=== PATIENT | female | born 2000 | race Caucasian/White ===

== ENCOUNTER 2020-10-09 03:11 | Emergency (ER) | payer BC ==
[2020-10-09] MEDS ORDERED: Sodium Chloride 0.9% 1,000 ML IV ONE (03:30)
[2020-10-09] MEDS ORDERED: Ondansetron 4 MG/2 ML SDV IVPUSH ONE (03:30)
[2020-10-09] MEDS ORDERED: Sodium Chloride 0.9% 10 ML Syringe FLUSH PRN (03:30)
[2020-10-09] MEDS ORDERED: LORazepam 2 MG/ML SDV IVPUSH ONE ×2 (03:33→04:40)
[2020-10-09] MEDS ORDERED: Sodium Chloride 0.9% 500 ML IV SCH (04:45)
--- NOTE | 2020-10-09 04:55 | EDM.PDOC ---
ED HPI GENERAL MEDICAL PROBLEM - General Chief Complaint: Abdominal Pain Stated Complaint: STOMACH PAIN Time Seen by Provider: 10/09/20 03:23 Source of Information: Reports: Patient, Significant Other History Limitations: Reports: Intoxication - History of Present Illness INITIAL COMMENTS - FREE TEXT/NARRATIVE: Patient is a 19-year-old female who presents to the emergency department vomiting continuously after drinking alcohol. Patient denies any other drug use. She is extremely tachycardic upon arrival heart rate in the 150s. She denies any chest pain or any diarrhea. She denies any bloody or tarry stools or hematemesis. With additional questioning she continues to state she has only been drinking alcohol though her mental status seems to be more altered than just alcohol. She denies being sick prior to tonight. She denies any trauma. Patient is here with her boyfriend. Onset: Today Duration: Getting Worse Location: Reports: Abdomen Severity: Moderate Improves with: Reports: None Worsens with: Reports: None Associated Symptoms: Reports: Nausea/Vomiting. Denies: Chest Pain, Diaphoresis, Headaches, Shortness of Breath Abdomen Pain Score (Numeric/FACES): 8 - Related Data Allergies Allergy/AdvReac Type Severity Reaction Status Date / Time No Known Allergies Allergy Verified 10/09/20 03:38 Home Meds: Home Meds Elagolix Sodium [Orilissa] 10/09/20 [History] Ondansetron [Zofran ODT] 4 mg PO Q6H PRN #10 tab.dis 10/09/20 [Rx] Past Medical History - Past Surgical History HEENT Surgical History: Reports: Tonsillectomy Social & Family History - Family History Family Medical History: No Pertinent Family History - Caffeine Use Caffeine Use: Reports: Coffee - Recreational Drug Use Recreational Drug Use: No ED ROS GENERAL - Review of Systems Review Of Systems: Comprehensive ROS is negative, except as noted in HPI. - Physical Exam Exam: See Below Exam Limited By: Intoxication General Appearance: Mild Distress Head Exam: Atraumatic, Normocephalic. No: Scalp Lacerations Neck: Normal Inspection, Supple Respiratory/Chest: No Respiratory Distress, Lungs Clear, Normal Breath Sounds Cardiovascular: Regular Rate, Rhythm, No JVD GI/Abdominal: Normal Bowel Sounds, Soft, Non-Tender, No Organomegaly, No Distention Neuro Exam (Abbreviated): Inattentive, Slow to Respond Extremities: Normal Inspection, No Pedal Edema Psychiatric: Flat Affect Skin Exam: Warm, Dry, Normal Color Course - Vital Signs Text/Narrative:: Patient was given some IV fluid and some lorazepam and Zofran. Her heart rate came down to 119. Patient is feeling better at this time. Her urine tox screen came back positive for amphetamines and cocaine. I confronted the patient about this but did not get much of a response though she is speaking clearly currently. I will discharge the patient home after we ambulate her if her gait is stable. Last Recorded V/S: Last Vital Signs Temp 98.1 F 10/09/20 05:23 Pulse 112 H 10/09/20 05:23 Resp 24 H 10/09/20 05:23 BP 117/61 10/09/20 05:23 Pulse Ox 96 10/09/20 05:23 - Orders/Labs/Meds Orders: Active Orders 24 hr Category Date Time Status Peripheral IV Insertion Adult [OM.PC] Routine Oth 10/09/20 03:30 Ordered EKG 12 Lead [EK] Stat Ther 10/09/20 04:21 Ordered Labs: Laboratory Tests 10/09/20 10/09/20 10/09/20 Range/Units 03:36 03:36 03:36 WBC 8.31 (3.98-10.04) K/mm3 RBC 5.31 H (3.98-5.22) M/mm3 Hgb 13.5 (11.2-15.7) gm/dl Hct 41.6 (34.1-44.9) % MCV 78.3 L (79.4-94.8) fl MCH 25.4 L (25.6-32.2) pg MCHC 32.5 (32.2-35.5) g/dl RDW Std Deviation 39.5 (36.4-46.3) fL Plt Count 314 (182-369) K/mm3 MPV 11.3 (9.4-12.3) fl Neutrophils % (Manual) 69 H (40-60) % Band Neutrophils % 6 (0-10) % Lymphocytes % (Manual) 11 L (20-40) % Atypical Lymphs % 9 % Monocytes % (Manual) 3 (2-10) % Eosinophils % (Manual) 1 (0.7-5.8) % Basophils % (Manual) 1 (0.1-1.2) Platelet Estimate Adequate Plt Morphology Comment Normal Microcytosis 1+ slight RBC Morph Comment Abnormal Sodium 144 (136-145) mEq/L Potassium 3.8 (3.5-5.1) mEq/L Chloride 108 H (98-107) mEq/L Carbon Dioxide 19 L (21-32) mEq/L Anion Gap 20.8 H (5-15) BUN 5 L (7-18) mg/dL Creatinine 0.8 (0.55-1.02) mg/dL Est Cr Clr Drug Dosing 118.21 mL/min Estimated GFR (MDRD) > 60 (>60) mL/min BUN/Creatinine Ratio 6.3 L (14-18) Glucose 121 H (70-99) mg/dL Calcium 8.9 (8.5-10.1) mg/dL Total Bilirubin 0.3 (0.2-1.0) mg/dL AST 24 (15-37) U/L ALT 38 (14-59) U/L Alkaline Phosphatase 120 H (46-116) U/L Total Protein 7.9 (6.4-8.2) g/dl Albumin 3.9 (3.4-5.0) g/dl Globulin 4.0 gm/dL Albumin/Globulin Ratio 1.0 (1-2) Lipase 68 L (73-393) U/L Urine HCG, Qual (NEGATIVE) Urine Opiates Screen (RVCTQP=910) Ur Buprenorphine Scrn (CUTOFF=10) Ur Oxycodone Screen (GCI5CM=708) Urine Methadone Screen (EAORYS=043) Ur Propoxyphene Screen (ZHCSEU=172) Ur Barbiturates Screen (FWIXZW=573) Ur Tricyclics Screen (TSWZVP=835) Ur Phencyclidine Scrn (CUTOFF=25) Ur Amphetamine Screen (IWINWA=445) U Methamphetamines Scrn (FKRRBF=938) U Benzodiazepines Scrn (SQPTRT=051) U Cocaine Metab Screen (FHEOVW=409) U Marijuana (THC) Screen (CUTOFF=50) Ethyl Alcohol 0.13 (0.00) gm% 10/09/20 10/09/20 Range/Units 03:51 03:51 WBC (3.98-10.04) K/mm3 RBC (3.98-5.22) M/mm3 Hgb (11.2-15.7) gm/dl Hct (34.1-44.9) % MCV (79.4-94.8) fl MCH (25.6-32.2) pg MCHC (32.2-35.5) g/dl RDW Std Deviation (36.4-46.3) fL Plt Count (182-369) K/mm3 MPV (9.4-12.3) fl Neutrophils % (Manual) (40-60) % Band Neutrophils % (0-10) % Lymphocytes % (Manual) (20-40) % Atypical Lymphs % % Monocytes % (Manual) (2-10) % Eosinophils % (Manual) (0.7-5.8) % Basophils % (Manual) (0.1-1.2) Platelet Estimate Plt Morphology Comment Microcytosis RBC Morph Comment Sodium (136-145) mEq/L Potassium (3.5-5.1) mEq/L Chloride (98-107) mEq/L Carbon Dioxide (21-32) mEq/L Anion Gap (5-15) BUN (7-18) mg/dL Creatinine (0.55-1.02) mg/dL Est Cr Clr Drug Dosing mL/min Estimated GFR (MDRD) (>60) mL/min BUN/Creatinine Ratio (14-18) Glucose (70-99) mg/dL Calcium (8.5-10.1) mg/dL Total Bilirubin (0.2-1.0) mg/dL AST (15-37) U/L ALT (14-59) U/L Alkaline Phosphatase (46-116) U/L Total Protein (6.4-8.2) g/dl Albumin (3.4-5.0) g/dl Globulin gm/dL Albumin/Globulin Ratio (1-2) Lipase (73-393) U/L Urine HCG, Qual Negative (NEGATIVE) Urine Opiates Screen Negative (FVBGPA=844) Ur Buprenorphine Scrn Negative (CUTOFF=10) Ur Oxycodone Screen Negative (WNP2QW=262) Urine Methadone Screen Negative (GYLDTN=079) Ur Propoxyphene Screen Negative (LNREYT=287) Ur Barbiturates Screen Negative (IYRQCM=412) Ur Tricyclics Screen Negative (LWGIID=865) Ur Phencyclidine Scrn Negative (CUTOFF=25) Ur Amphetamine Screen Presumptive positive H (SARQVW=017) U Methamphetamines Scrn Negative (AVSYEQ=442) U Benzodiazepines Scrn Negative (ILPGWR=960) U Cocaine Metab Screen Presumptive positive H (OHGTYJ=714) U Marijuana (THC) Screen Negative (CUTOFF=50) Ethyl Alcohol (0.00) gm% Meds: Medications Discontinued Medications Generic Name Dose Route Start Last Admin Trade Name Freq PRN Reason Stop Dose Admin Sodium Chloride 1,000 mls @ 1,000 mls/hr 10/09/20 03:30 10/09/20 03:39 Normal Saline IV 10/09/20 04:29 1,000 mls/hr ONETIME ONE Administration Sodium Chloride 500 mls @ 500 mls/hr 10/09/20 04:45 10/09/20 04:46 Normal Saline IV 500 mls/hr .BOLUS BJ Administration Lorazepam 0.5 mg 10/09/20 03:33 10/09/20 03:40 Lorazepam 2 Mg/Ml Sdv IVPUSH 10/09/20 03:34 0.5 mg ONETIME ONE Administration Lorazepam 0.5 mg 10/09/20 04:40 10/09/20 04:46 Lorazepam 2 Mg/Ml Sdv IVPUSH 10/09/20 04:41 0.5 mg ONETIME ONE Administration Ondansetron HCl 4 mg 10/09/20 03:30 10/09/20 03:40 Ondansetron 4 Mg/2 Ml Sdv IVPUSH 10/09/20 03:31 4 mg ONETIME ONE Administration Sodium Chloride 10 ml 10/09/20 03:30 10/09/20 03:43 Sodium Chloride 0.9% 10 Ml Syringe FLUSH 10 ml ASDIRECTED PRN Administration Keep Vein Open Departure - Departure Time of Disposition: 04:56 Disposition: Home, Self-Care 01 Condition: Good Clinical Impression: Vomiting, Polysubstance abuse, Cocaine abuse, Amphetamine abuse - Discharge Information Prescriptions: Ondansetron [Zofran ODT] 4 mg PO Q6H PRN #10 tab.dis PRN Reason: Vomiting Instructions: Nausea and Vomiting, Adult, [id number], Illegal Drug Use Information, Adult Referrals: PCP,None [Primary Care Provider] - Forms: ED Department Discharge Additional Instructions: Not use illegal drugs. If indicated go to detox center. Return to ER if worse. Zofran as needed. Sepsis Event Note (ED) - Evaluation Sepsis Screening Result: No Definite Risk - My Orders Last 24 Hours: My Active Orders 10/09/20 03:30 Peripheral IV Insertion Adult [OM.PC] Routine 10/09/20 04:21 EKG 12 Lead [EK] Stat - Assessment/Plan Last 24 Hours: My Active Orders 10/09/20 03:30 Peripheral IV Insertion Adult [OM.PC] Routine 10/09/20 04:21 EKG 12 Lead [EK] Stat
== END 2020-10-09 05:21 | disposition home or self-care (01) ==
LOC: JD.ED 03:11
DX: R11.10 Vomiting, unspecified (principal); F14.10 Cocaine abuse, uncomplicated; F15.10 Other stimulant abuse, uncomplicated; R00.0 Tachycardia, unspecified
CPT/HCPCS: 36415; 80053; 80306; 80307; 81025; 83690; 85007; 85027; 93005; 96374; 96375; 96376; 99285; J2060; J2405; J7030; J7040